=== PATIENT | male | born 1990 | race Caucasian/White ===

== ENCOUNTER 2017-03-25 21:43 | Emergency (ER) | payer BC, OTHER ==
[2017-03-25 21:54] VITALS: BP 156/93; RESP 16; TEMP 98.2; O2SAT 98
[2017-03-25] MEDS ORDERED: Sodium Chloride 0.9% 1,000 ML IV STA (22:24)
[2017-03-25 23:27] LABS: BLOOD UREA NITROGEN 12 mg/dl (9-20); CALCIUM 9.8 mg/dL (8.4-10.2); GFR AFRICAN-AMERICAN > 60; GFR NON-AFRICAN AMERICAN > 60
--- NOTE | 2017-03-25 23:29 | ED PDOC ---
Syncope/Near Syncope/Dizziness Time Seen by Provider: 03/25/17 22:15 Chief Complaint (Nursing): Dizziness/Lightheaded Chief Complaint (Provider): Syncopal Episode History Per: Patient History/Exam Limitations: no limitations Onset/Duration Of Symptoms: Hrs Current Symptoms Are (Timing): Still Present Activity At Onset Of Symptoms: Lying Fall Associated With With Symptoms: No Additional Complaint(s): Nixon Olguin, a 26 year old male, presents to the ED for a syncopal episode that occurred an hour prior to arrival. The patient reports that he was taking a nap when he woke up all sweaty. He further states that when he tried to get up from the bed when he felt a flush of blood, dizziness and then passed out. Patient reports that he does not know how long he was passed out for. He does state that when he woke up he came proceeded to come to the ER to get checked. Denies chest pain, shortness of breath, headache. Patient currently denies any symptoms except that he is still feeling hot. Past Medical History Reviewed: Historical Data, Nursing Documentation, Vital Signs Vital Signs: Last Vital Signs Temp 98.2 F 03/25/17 21:51 Pulse 95 H 03/25/17 21:51 Resp 16 03/25/17 21:51 BP 156/93 H 03/25/17 21:51 Pulse Ox 98 03/25/17 21:51 - Medical History PMH: No Chronic Diseases - Family History Family History: States: Unknown Family Hx - Allergies Allergies/Adverse Reactions: Allergies Allergy/AdvReac Type Severity Reaction Status Date / Time No Known Allergies Allergy Verified 03/25/17 21:50 Review of Systems Cardiovascular: Negative for: Chest Pain Respiratory: Negative for: Shortness of Breath Neurological: Positive for: Other (Syncopal Episode.). Negative for: Headache Physical Exam - Reviewed Nursing Documentation Reviewed: Yes Vital Signs Reviewed: Yes - Physical Exam Appears: Positive for: Non-toxic, No Acute Distress Head Exam: Positive for: ATRAUMATIC, NORMAL INSPECTION, NORMOCEPHALIC Skin: Positive for: Normal Color, Warm, Dry Eye Exam: Positive for: Normal appearance, EOMI, PERRL ENT: Positive for: Normal ENT Inspection Neck: Positive for: Normal, Painless ROM, Supple Cardiovascular/Chest: Positive for: Regular Rate, Rhythm, Chest Non Tender. Negative for: Tachycardia Respiratory: Positive for: Normal Breath Sounds. Negative for: Wheezing, Respiratory Distress Gastrointestinal/Abdominal: Positive for: Normal Exam, Bowel Sounds, Soft. Negative for: Tenderness, Guarding, Rebound Back: Positive for: Normal Inspection Extremity: Positive for: Normal ROM. Negative for: Tenderness, Pedal Edema, Deformity, Swelling Neurologic/Psych: Positive for: Alert, Oriented, Gait - Laboratory Results Result Diagrams: 03/25/17 22:32 03/25/17 23:00 - ECG ECG: Positive for: Interpreted By Me, Viewed By Me ECG Rhythm: Positive for: Normal QRS, Normal ST Segment, Sinus Rhythm. Negative for: ST/T Changes Rate: 73 O2 Sat by Pulse Oximetry: 98 (RA) Pulse Ox Interpretation: Normal - Progress Re-evaluation Time: 00:40 Condition: Re-examined, Improved Medical Decision Making Medical Decision Makin Initial Impression: 26 year old male presenting with syncope Differentials: Cardiac Arrhythmia, Dehydration, Vasovagal Episode Initial Plan: * EKG * Basic Metabolic Panel * Drug Screen * Troponin * Udip * CBC * NS 1000mls IV 1000mls\hr * Reevaluation Scribe Attestation Documented by Laverne Arenas acting as a scribe for Dread Peters MD. Provider Attestation All medical record entries made by the Scribe were at my direction and personally dictated by me. I have reviewed the chart and agree that the record accurately reflects my personal performance of the history, physical exam, medical decision making, and the department course for this patient. I have also personally directed, reviewed, and agree with the discharge instructions and disposition. Disposition - Clinical Impression Clinical Impression: Dizziness, Syncope - Patient ED Disposition Is Patient to be Admitted: No Doctor Will See Patient In The: Office Counseled Patient/Family Regarding: Studies Performed, Diagnosis, Need For Followup - Disposition Referrals: [facility] [Outside] Disposition: Routine/Home Disposition Time: 00:40 Condition: GOOD Additional Instructions: Drink plenty of fluids. Follow up with your PCP in 2-3 days. Instructions: Syncope (ED)
[2017-03-25 23:35] LABS: BARBITURATES, UR NEGATIVE (NEGATIVE); BENZODIAZEPINES, UR NEGATIVE (NEGATIVE); OPIATES, UR NEGATIVE (NEGATIVE); PHENCYCLIDINE, UR NEGATIVE (NEGATIVE)
[2017-03-25 23:45] LABS: BASO # 0.1 K/uL (0.0-0.2); EOS # 0.2 K/uL (0.0-0.7); EOS % 1.9 % (0.0-4.0); HEMOGLOBIN 16.3 g/dL (12.0-18.0); LYMPH # 2.6 K/uL (1.0-4.3); LYMPH % 23.2 % (20.0-40.0); MEAN CORPUSCULAR HGB CONC 33.7 g/dL (33.0-37.0); MEAN PLATELET VOLUME 7.8 fl (7.2-11.7); MONO # 0.7 K/uL (0.0-0.8); MONO % 6.5 % (0.0-10.0); NEUT # 7.5 K/uL (1.8-7.0); NEUT % 67.4 % (50.0-75.0); NRBC % 0.1 % (0.0-0.0); RBC 5.24 Mil/uL (4.40-5.90); RED CELL DISTRIBUTION WIDTH 13.2 % (11.5-14.5); WHITE BLOOD COUNT 11.2 K/uL (4.8-10.8)
[2017-03-25 23:57] VITALS: PULSE 73
--- NOTE | 2017-03-26 20:16 | CARD ---
APPROVED REPORT EKG Measurement Heart [id number] <Conclusion> Sinus rhythm with marked sinus arrhythmia Otherwise normal ECG
== END 2017-03-26 01:30 | disposition home or self-care (01) ==
LOC: H.ER 21:43
DX: R55 Syncope and collapse (principal)
CPT/HCPCS: 80048; 84484; 85025; 93005; 96360; 99282; G0480; J7040